=== PATIENT | male | born 1945 | race Caucasian/White ===

== ENCOUNTER → 2017-03-02 | Day surgery (SDC) | payer MEDICARE, OTHER ==
[~2017-03-02] VITALS: Ht 175.3 cm; Wt 88.0 kg
[~2017-03-02] MED LIST: ALBU8.5H2 INHALATION; ASPI-973 PO; ATOR80TA PO; CARV12.52 PO; CLOP75TA28 PO; DOCU-41 PO; FERR324T2 PO; KEN25CR EXT; LISI-571 PO; LISI2.5T PO; Lactated Ringer's 1,000 ML IV ONE; METF500T4 PO; MULT-666 PO; Propofol 10,000 mCg/mL 20 mL Inj ONE; RANI150C4 PO; SENN-133 PO; TORS20TA3 PO
[2017-03-02 10:54] VITALS: BP 165/78; PULSE 67; RESP 14; O2SAT 96
--- NOTE | 2017-03-02 11:31 | PCM.HPANE ---
Patient Data Surgeon Admitting Provider: Attending Provider:Alexandru Cedillo MD Primary Care Physician:Didier Beatty MD Other Provider:AssKassandra grimesBelzoni Anesthesia Reason for Visit Positive Occult Stool Blood Test Ht/WT & BMI Height (Feet): 5 Height (Inches): 9 Weight (Kilograms): 88 Body Mass Index 28.00 Allergies Coded Allergies: No Known Drug Allergies (Verified Allergy, Unknown, 02/26/17) Past Anesthesia History Anesthesia History: Denies:: Abnormal Airway, Anesthesia Reactions, Difficult Intubation, Fam Anesthesia Reaction, Fam Malignant Hypertherm, Malignant Hyperthermia Diabetes History Hx Diabetes?: Yes Current Bedside Blood Glucose: 122 MRSA MRSA: No Medications Blood Thinner: Aspirin, Plavix Last Dose Blood Thinner: Mar 01, 2017 Home Meds Incl Beta Allison: Yes Date Beta Allison Taken: Mar 01, 2017 Time Beta Allison Taken: 1999 Reported Medications Triamcinolone Acet (Triamcinolone Acetonide Cream)1 Applic/0.25 Gm Cr1 Applic EXT BID #60 GM Ref 0 02/26/17 Torsemide 20 Mg Fxliwm66 Mg PO DAILY 30 Days Ref 0 02/26/17 Sennosides (Senna)8.6 Mg Isnhdg37.3 Mg PO DAILY PRN CONSTIPATION 02/26/17 Ranitidine 150 Mg Gtxcuat732 Mg PO BID Ref 0 02/26/17 Albuterol HFA (Proair HFA)8.5 Gm Hfa.aer.ad2 Puffs INHALATION Q4H PRN For Wheezing #1 INHALER 02/26/17 Multivitamin (Once Daily)1 Each Tablet1 Each PO DAILY 02/26/17 Metformin 500 Mg Hbofgo199 Mg PO BID Ref 0 02/26/17 Lisinopril 5 Mg Tablet5 Mg PO QAM #30 TABLET Ref 0 02/26/17 Lisinopril 2.5 Mg Tablet2.5 Mg PO QPM 30 Days Ref 0 02/26/17 Ferrous Sulfate 324 Mg Tablet.dr324 Mg PO DAILY 30 Days Ref 0 02/26/17 Docusate Sodium (Colace)100 Mg Juruxbm076 Mg PO DAILY PRN For Constipation Ref 0 02/26/17 Clopidogrel 75 Mg Spffiq00 Mg PO DAILY Ref 0 02/26/17 Carvedilol 12.5 Mg Fpngfr26.5 Mg PO BID Ref 0 02/26/17 Atorvastatin (Lipitor)80 Mg Rskoef03 Mg PO DAILY Ref 0 02/26/17 Aspirin 81 Mg Vbevnt65 Mg PO DAILY Ref 0 02/26/17 History History of ENT Problems?: No HEENT History: Denies:: Abnormal Airway Difficult Intubation Hearing Problem Denture Type: None Teeth Condition: Within Normal Limits Hx of Heart Problems?: Yes Cardiovascular History: Positive for:: AICD Hypertension Pacemaker Denies:: Atrial Fibrillation Chest Pain Valvular Heart Disease Other History/Comments NO PROBLES SINCE aicd IN PLACE CARDIAC STENTS X 2, Cardiac ROS negative Hx of Respiratory Problem?: Yes Respiratory History: Positive for:: COPD Pneumonia (MANY YEARS AGO) Denies:: Asthma Other History/Comment ROS negative Hx Neurologic Problems?: No Neurological History: Denies:: CVA Hx of GI Problems?: Yes Other History/Comment occult blood in stool Hx of Problems?: No Male Hx: Denies:: Prostate Problems Scrotal Mass Testicular Surgery Skin History: Denies:: History Skin Disorders? Pressure Ulcers Hx Musculoskeletal Problems?: No Musculoskeletal History: Denies:: Back Injury Degenerative Joint Fibromyalgia Joint Replacement Musculoskeletal Trauma Myasthenia Gravis Osteoarthritis Rheumatoid Arthritis Systemic Lupus Psycho Social History: Denies:: Anxiety Bipolar Disorder Hx Depression Suicide Attempt Hx Surgeries?: Yes (pacemaker, stents, hands, appy) Hx Any Other Health Problems?: Yes Hx Diabetes: YesBedside Blood Glucose: 122 Other History/Comment Vinod DM and not taking metformin Hx Alcohol Use: Yes (BEER SOCIALLY) Stop/Bang Treated for Sleep Apnea?: No Do You Have a CPAP Machine?: No S-Snoring: Do You Snore Loudly: No T-Tired: feel tired, fatigued: No O-Obsered: Observed not breath: No P-Blood Pressure: treated: Yes B- Body Mass Index > 35 kg/m2: Yes A- Age over 50: Yes N- Neck Large Circumference: Yes G- Gender Male: Yes DAVID Total Score: 5 DAVID Category 2: Yes Risk Assessment Category Category 1A: Patient has history of documented sleep apnea, and HAS NOT received any narcotic, sedative or anesthesia administration during this stay. Category 1B: Patient has history of documented sleep apnea, and HAS received any narcotic , sedative or anesthesia administration during this stay Category 2: Patient has SUSPECTED Obstructive Sleep Apnea, and HAS received any narcotic , sedative or anesthesia administration during this stay. Category 3: Patient has SUSPECTED Obstructive Sleep Apnea and HAS NOT received narcotic, sedative or anesthesia administration during this stay. Category 4: Outpatient in Procedural Areas with known sleep apnea or who screen positive for High Risk via the STOP/BANG questionnaire. Exam Exam Vital Signs Vital Signs Date Time Temp Pulse Resp B/P Pulse Ox O2 Delivery O2 Flow Rate FiO2 03/02/17 10:54 36.4 67 14 165/78 96 Room Air General Appearance: Alert, Oriented X3, Cooperative, No Acute Distress HEENT/AIRWAY: MP 2 Lungs: Clear to Auscultation, Normal Air Movement Heart: Exam Unremarkable, Regular Rate/Rhythm, No Murmurs/Rubs/Gallops Meds/Labs/Diagnostics Bedside Blood Glucose: 122 Plan Impression Patient chart reviewed, patient interviewed and anesthestic plan with risks, benefits, and alternatives discussed, and informed consent obtained. ASA Physical Status: ASA3 Severe Disease Anesthetic Plan: GA Bene/Risks/Altern/Consents: Yes HP Complete Prior to Induction: Yes Alexandru Guerra MD Mar 02, 2017 11:30
[2017-03-02 11:58] VITALS: BP 130/69; PULSE 68; RESP 15; O2SAT 97
--- NOTE | 2017-03-02 12:06 | PCM.ANEP1 ---
Post Anesthesia PACU Phase 1 Assessment Vital Signs Vital Signs Date Time Temp Pulse Resp B/P Pulse Ox O2 Delivery O2 Flow Rate FiO2 03/02/17 11:58 68 15 130/69 97 Room Air 03/02/17 10:54 36.4 67 14 165/78 96 Room Air Anesthetic Administered: GA Level of Alertness: Awake, talking CLIFFORD's with Equal Strength: Yes Pain: No Nausea or Vomiting: No CV Function & Hydration Stable: Yes Airway Device: Oxygen Delivery: Room Air Lungs: Clear to Auscultation, Normal Air Movement Dermatome Level: Full Sensation PACU Phase 2 Assessment Complications: No Follow up Care: No Patient Instructions Provided: N/A Alexandru Guerra MD Mar 02, 2017 12:06
[2017-03-02 12:08] VITALS: BP 174/83; PULSE 68; RESP 16; O2SAT 98
[2017-03-02 12:13] VITALS: BP 181/73; PULSE 62; RESP 16; O2SAT 98
--- NOTE | 2017-03-02 13:53 | ENDO ---
[address] [address] ENDOSCOPY PROCEDURE PATIENT: JEROME MENDEZ : 1945 MR#: [id number] ADMIT: 03/02/2017 JOB ID: [id number] OPERATION: Colonoscopy. PREOPERATIVE DIAGNOSIS(ES): Guaiac positive stools. POSTOPERATIVE DIAGNOSIS(ES): Small internal hemorrhoids. ANESTHESIA: Monitored anesthesia care. COMPLICATIONS: None. BLOOD LOSS: Minimal. DESCRIPTION OF PROCEDURE: After the risks and benefits were explained to the patient, informed consent was obtained. After anesthesia was administered, the colonoscope was inserted per rectum to cecum and the mucosa carefully examined. Prep of the patient was fair. After the procedure was done, the scope withdrawn and the procedure terminated. FINDINGS: Upon inspection of the anus, no masses, hemorrhoids, ulcers that were seen. Throughout the entire examination no polyps, masses, or lesions. Retroflexion showed small internal hemorrhoids. IMPRESSION: Small internal hemorrhoids. RECOMMENDATIONS: 1. Stool softener as needed. 2. Repeat colonoscopy in five years given history of tubular adenoma polyps.
== END | disposition home or self-care (01) ==
LOC: END 02:23
PROVIDERS: ATTEND Internal Medicine Gastroenterology
DX: R19.5 Other fecal abnormalities (principal); K64.8 Other hemorrhoids; I25.10 Atherosclerotic heart disease of native coronary artery without angina pectoris; Z95.1 Presence of aortocoronary bypass graft; Z95.5 Presence of coronary angioplasty implant and graft; I38 Endocarditis, valve unspecified; I42.8 Other cardiomyopathies; I25.5 Ischemic cardiomyopathy; Z95.810 Presence of automatic (implantable) cardiac defibrillator
CPT/HCPCS: 45378; J2704; J7120